=== PATIENT | female | born 1950 | race Caucasian/White ===

== ENCOUNTER → 2016-08-27 | Outpatient (CLI) | payer OTHER ==
[~2016-08-27] VITALS: Ht 157.5 cm; Wt 55.4 kg
[~2016-08-27] MED LIST: CHLORHEXIDINE GLUCONATE 2 % 1 PACK (2 CLOTHS) TOPICAL PRN; INSULIN HUMAN REGULAR 1,000 UNITS/10 ML VIAL SQ PRN; LACTATED RINGER'S 1000 ML IV PRN; METOPROLOL TARTRATE 25 MG TAB PO PRN; POVIDONE IODINE 5% (ANTISEPSIS KIT) 4 APPLICATIONS EACH NARE PRN; PROPOFOL 200 MG/20 ML AMP IV ONE; SODIUM CHLORID 0.9% 500 ML IV PRN
[2016-08-27 09:51] VITALS: BP 112/75; PULSE 79; RESP 16; TEMP 98.5; O2SAT 98
[2016-08-27 12:50] VITALS: TEMP 97.5
[2016-08-27 13:00] VITALS: BP 108/69; PULSE 71; RESP 16; O2SAT 92
--- NOTE | 2016-08-27 13:12 | GIPROC ---
[facility] [address] [facility]. [facility], [address] COLONOSCOPY PROCEDURE REPORT EXAM DATE: 08/27/2016 PATIENT NAME: Nina Samayoa MR #: [id number] BIRTHDATE: 1950 ENDOSCOPIST: Obi Melendez MD ORDER #: [id number] SLOOP CAPTAIN: Gera Freeman and Austin Espitia STATUS: outpatient INDICATIONS: The patient is a 66 yr old female here for a colonoscopy due to average risk patient for colon cancer PROCEDURE PERFORMED: Colonoscopy with polypectomy Colonoscopy with ablation MEDICATIONS: None and Per Anesthesia. PREP QUALITY: poor ESTIMATED BLOOD LOSS: None CONSENT: The patient understands the risks and benefits of the procedure and understands that these risks include, but are not limited to: sedation, allergic reaction, infection, perforation and/or bleeding. Alternative means of evaluation and treatment include, among others: physical exam, x-rays, and/or surgical intervention. The patient elects to proceed with this endoscopic procedure. medical equipment was checked for proper function. Hand hygiene and appropriate measures for infection prevention was taken. After the risks, benefits and alternatives of the procedure were thoroughly explained, Informed consent was verified, confirmed and timeout was successfully executed by the treatment team. A digital exam was performed and revealed no abnormalities of the rectum The Pentax [id number] endoscope was introduced through the anus and advanced to the cecum, which was identified by both the appendix and ileocecal valve. The instrument was then slowly withdrawn as the colon was fully examined. COLON FINDINGS: The colonic mucosa appeared normal throughout the entire examined colon. Two diminutive sessile polyps, measuring 15 mm in size, were found in the ascending colon. A polypectomy was performed using snare cautery. The resection was complete and the polyp tissue was completely retrieved. Fulguration of polyps was performed. A medium sized sessile polyp was found in the sigmoid colon. A polypectomy was performed using snare cautery. The resection was complete and the polyp tissue was completely retrieved. Three diminutive sessile polyps, measuring 10 mm in size, were found in the proximal rectum. A polypectomy was performed using snare cautery. The resection was complete and the polyp tissue was completely retrieved. Fulguration of polyps was performed. The resections were complete and the polyp tissue was not retrieved. A polypoid shaped sessile polyp measuring 20 mm in size was found in the distal rectum. A polypectomy was performed using snare cautery. The resection was complete and the polyp tissue was completely retrieved. Retroflexion was performed and was normal The scope was then completely withdrawn from the patient and the procedure terminated. PROCEDURE WITHDRAWAL TIME:15minutes ADVERSE EVENTS: There were no complications. IMPRESSIONS: 1. The colonic mucosa appeared normal throughout the entire examined colon 2. Two diminutive sessile polyps, measuring 15 mm in size, were found in the ascending colon; polypectomy was performed using snare cautery; Fulguration of polyps was performed 3. A medium sized sessile polyp was found in the sigmoid colon; polypectomy was performed using snare cautery 4. Three diminutive sessile polyps were found in the rectum; polypectomy was performed using snare cautery; Fulguration of polyps was performed 5. A sessile polyp measuring 20 mm in size was found in the rectum; polypectomy was performed using snare cautery 6. Retroflexion was performed and was normal 7. Was performed 8. Revealed no abnormalities of the rectum RECOMMENDATIONS: Await biopsy results. Biopsy results will not be ready for 7-10 days. If you don't hear from us in two weeks, call our office for results. RECALL: Return 3 months Colonoscopy Multiple polyps and poor prepration. Obi Melendez MD eSigned: Obi Melendez MD 08/27/2016 1:01 PM cc: PATIENT NAME: Nina Samayoa MR#: [id number]
--- NOTE | 2016-08-27 18:01 | EKG ---
Date Performed: 08/27/2016 Time Performed: 09:37:57 PTAGE: 66 years EKG: Sinus rhythm MARKED LEFT AXIS DEVIATION MODERATE INTRAVENTRICULAR CONDUCTION DELAY MODERATE VOLTAGE CRITERIA FOR LVH, CONSIDER NORMAL VARIANT ABNORMAL ECG Compared to prior tracing no significant change. PREVIOUS TRACING : 01/19/2014 08.45 DOCTOR: Quincy Eddy Interpretating Date/Time 08/27/2016 18:01:00
== END ==
LOC: HEND 08:52
PROVIDERS: ATTEND Internal Medicine Gastroenterology
DX: D12.2 Benign neoplasm of ascending colon (principal); D12.8 Benign neoplasm of rectum; K58.1 Irritable bowel syndrome with constipation; K58.0 Irritable bowel syndrome with diarrhea; F17.200 Nicotine dependence, unspecified, uncomplicated; Z01.810 Encounter for preprocedural cardiovascular examination
CPT/HCPCS: 45385; 88305; 93005; J7120

== ENCOUNTER → 2016-10-16 | Outpatient (CLI) | payer OTHER ==
--- NOTE | 2016-10-16 14:29 | RADRPT ---
EXAM DATE/TIME: 10/16/2016 14:06 [facility] COMPARISON: No previous studies available for comparison. INDICATIONS : COPD. Thyroid nodule. RADIATION DOSE: 5.17 CTDIvol (mGy) MEDICAL HISTORY : Chronic obstructive pulmonary disease. SURGICAL HISTORY : Tubal ligation. bilateral lens implants. ENCOUNTER: Initial ACUITY: 2 months PAIN SCALE: 4/10 LOCATION: Bilateral chest TECHNIQUE: Volumetric scanning of the chest was performed. Using automated exposure control and adjustment of t he mA and/or kV according to patient size, radiation dose was kept as low as reasonably achievable to obtain optimal diagnostic quality images. DICOM format image data is available electronically for r eview and comparison. FINDINGS: LUNGS: There is mild hyperinflation. There are no suspicious lung lesions. PLEURAE: There is no pleural thickening or pleural effusion. MEDIASTINUM: There is no axillary or mediastinal adenopathy. AXILLAE: Within normal limits. No lymphadenopathy. MUSCULOSKELETAL: Within normal limits for patient age. MISCELLANEOUS: The tail of the pancreas is atrophic. There is mild prominence of the head of the pancreas. Bilateral thyroid nodules are noted. CONCLUSION: Bilateral thyroid nodules. There are no suspicious lung nodules. David Cates MD FACR on October 16, 2016 at 14:24 Board Certified Radiologist. This report was verified electronically.
--- NOTE | 2016-10-16 16:26 | RADRPT ---
EXAM DATE/TIME: 10/16/2016 14:33 [facility] COMPARISON: No previous studies available for comparison. INDICATIONS : Thyroid nodules. MEDICAL HISTORY : Osteoarthritis. Kidney stones. Thyroid problems. SURGICAL HISTORY : Tubal ligation. Cystoscopy. Lens implant. Lithotripsy. ENCOUNTER: Subsequent ACUITY: >1 year PAIN SCORE: 0/10 LOCATION: Bilateral neck MEASUREMENTS: RIGHT LOBE: 7.7 x 3.6 x 3.1 cm LEFT LOBE: 9.2 x 3.5 x 2.5 cm FINDINGS: The thyroid gland is enlarged and very heterogeneous. Right lobe measures up to 7 cm in length left l obe 9.2 cm in length. Multiple bilateral thyroid nodules present. These are complex and fairly circumscribed measuring up t o 1.4 cm, 1.3 cm and 1.5 cm around the mid pole right lobe. Left lobe thyroid nodules are more cystic measuring up to 7 mm and 12 mm in the midpole. CONCLUSION: 1. Multinodular goiter as above. Kashif Coyle MD on October 16, 2016 at 16:19 Board Certified Radiologist. This report was verified electronically.
== END ==
LOC: HRAD 13:28
PROVIDERS: ATTEND Specialist
DX: E04.1 Nontoxic single thyroid nodule (principal)
CPT/HCPCS: 71250; 76536

== ENCOUNTER → 2016-12-07 | Outpatient (CLI) | payer OTHER ==
[~2016-12-07] MED LIST changes: -CHLORHEXIDINE GLUCONATE 2 % 1 PACK (2 CLOTHS) TOPICAL PRN; -INSULIN HUMAN REGULAR 1,000 UNITS/10 ML VIAL SQ PRN; -LACTATED RINGER'S 1000 ML IV PRN; -METOPROLOL TARTRATE 25 MG TAB PO PRN; -POVIDONE IODINE 5% (ANTISEPSIS KIT) 4 APPLICATIONS EACH NARE PRN; -PROPOFOL 200 MG/20 ML AMP IV ONE; -SODIUM CHLORID 0.9% 500 ML IV PRN; +[UNRECOGNIZED DRUG - OTHER] PO
[2016-12-07 11:52] LABS: AUTOMATED NEUTROPHIL # 8.3 TH/MM3 (1.8-7.7); BASOPHIL # 0.1 TH/MM3 (0-0.2); BASOPHIL % 0.5 % (0.0-2.0); EOSINOPHIL # 0.1 TH/MM3 (0-0.4); EOSINOPHIL % 1.2 % (0.0-4.0); HEMATOCRIT 45.6 % (35.0-46.0); HEMO FLAGS DIFF FINAL; LYMPH % 23.5 % (9.0-44.0); LYMPHOCYTE # 2.9 TH/MM3 (1.0-4.8); MEAN CELL VOLUME 93.6 FL (80.0-100.0); MEAN CORPUSCULAR HEMOGLOBIN 31.4 PG (27.0-34.0); MEAN CORPUSCULAR HGB CONC 33.6 % (32.0-36.0); MONO % 6.6 % (0.0-8.0); NEUT % 68.2 % (16.0-70.0); PLATELET COUNT 330 TH/MM3 (150-450); RED BLOOD COUNT 4.88 MIL/MM3 (4.00-5.30); RED CELL DISTRIBUTION WIDTH 13.5 % (11.6-17.2); WHITE BLOOD COUNT 12.2 TH/MM3 (4.0-11.0)
--- NOTE | 2016-12-07 12:15 | RADRPT ---
EXAM DATE/TIME: 12/07/2016 09:59 [facility] COMPARISON: CT ABDOMEN & PELVIS W/O CONTRAST, January 18, 2014, 20:39. CT THORAX W/O CONTRAST, October 16, 2016, 14:06. INDICATIONS : Abdominal pain. MEDICAL HISTORY : Osteoarthritis. SURGICAL HISTORY : Tubal ligation. Renal stent placement and removal. Cystoscopy. Lithotripsy. ENCOUNTER: Initial ACUITY: 1 day PAIN SCORE: 1/10 LOCATION: Abdomen. MEASUREMENTS: LIVER: 16.4 cm length COMMON DUCT: 5 mm RIGHT KIDNEY: 9.9 x 4.8 x 4.9 cm LEFT KIDNEY: 11.2 x 5.3 x 3.8 cm SPLEEN: 7.6 cm length AORTA: 1.9cm maximal FINDINGS: LIVER: Normal echotexture without focal lesion or ductal dilatation. COMMON DUCT: No intraluminal mass or stone visualized. GALLBLADDER: Contains no stones, demonstrates no wall thickening or pericholecystic fluid. PANCREAS: The visualized portions are within normal limits. RIGHT KIDNEY: No hydronephrosis, stone or mass. Mild distention of the renal pelvis. LEFT KIDNEY: No hydronephrosis, stone or mass. Mild distention of the renal pelvis. There is a stable 5 mm area o f fat at the lower pole the left kidney. SPLEEN: No focal lesion. AORTA: Non aneurysmal. There is mild atherosclerotic disease. IVC: Within normal limits. CONCLUSION: 1. No definite abnormality is identified to explain the abdominal pain. No gallstones are present. 2. Mild distention of the renal pelves bilaterally of uncertain etiology. The left renal pelvis was m ildly distended on the prior examination from 2013. Suggest correlation with history and laboratory d quin to determine if there any findings to indicate urinary obstruction. 3. 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 Clovis Phillips MD on December 07, 2016 at 12:07 Board Certified Radiologist. This report was verified electronically.
--- NOTE | 2016-12-07 12:19 | RADRPT ---
EXAM DATE/TIME: 12/07/2016 10:24 [facility] COMPARISON: No previous studies available for comparison. INDICATIONS : Pelvic pain. MEDICAL HISTORY : Osteoarthritis. SURGICAL HISTORY : Tubal ligation. ENCOUNTER: Initial ACUITY: 1 day PAIN SCORE: 0/10 LOCATION: Bilateral pelvis MEASUREMENTS: RIGHT OVARY: 2.9 x 1.6 x 2.1 cm UTERUS: 6.0 x 2.7 x 4.6 cm ENDOMETRIAL STRIPE: 4 mm LEFT OVARY: 2.1 x 1.5 x 1.8 cm FINDINGS: UTERUS: The myometrium has homogeneous echotexture without mass. RIGHT OVARY: Ovary contains no mass or significant cystic lesion. LEFT OVARY: Ovary contains no mass or significant cystic lesion. MISCELLANEOUS: No free fluid. CONCLUSION: Normal ultrasound of the pelvis. There is no finding to explain the pelvic pain. Clovis Phillips MD on December 07, 2016 at 12:14 Board Certified Radiologist. This report was verified electronically.
[2016-12-07 12:22] LABS: ALT (GPT) 27 U/L (10-53); ANION GAP 3 MEQ/L (5-15); AST (GOT) 16 U/L (15-37); BICARBONATE 31.8 MEQ/L (21.0-32.0); BLOOD UREA NITROGEN 13 MG/DL (7-18); CHLORIDE 107 MEQ/L (98-107); GLOMERULAR FILTRATION RATE 78 ML/MIN (>89); GLUCOSE,FASTING 202 MG/DL (74-99); SODIUM (NA) 142 MEQ/L (136-145)
[2016-12-07 12:31] LABS: ALKALINE PHOSPHATASE 87 U/L (45-117); FREE T4 1.13 NG/DL (0.76-1.46); HDL CHOLESTEROL 54.4 MG/DL (40.0-60.0); LDL CHOLESTEROL 142 MG/DL (0-99); TOTAL BILIRUBIN ADULT 0.4 MG/DL (0.2-1.0)
[2016-12-07 14:27] LABS: MICRO ALBUMIN RANDOM URINE RAW 16.5 MG/L (0.0-30.0)
[2016-12-07 16:36] LABS: HEMOGLOBIN A1a 1.3 %; HEMOGLOBIN A1b 2.6 %; HEMOGLOBIN Ao 78.8 %; HEMOGLOBIN LA1C 3.1 %; HEMOGLOBIN P3 4.9 %
== END ==
LOC: HRAD 09:10
DX: R10.32 Left lower quadrant pain (principal); R10.2 Pelvic and perineal pain; E11.69 Type 2 diabetes mellitus with other specified complication; E78.5 Hyperlipidemia, unspecified
CPT/HCPCS: 36415; 76700; 76830; 76856; 80053; 80061; 82043; 83036; 84439; 84443; 85025